=== PATIENT | male | born 1980 | race Caucasian/White ===

== ENCOUNTER 2021-05-28 20:44 | Emergency (ER) | payer MEDICAID, SELFPAY ==
[2021-05-28 20:44] VITALS: PULSE 66; RESP 18; TEMP 37.1; O2SAT 98; BMI 25.8
--- NOTE | 2021-05-28 21:01 | EKG12_ITS ---
Test Reason : CHEST PAIN Blood Pressure : / mmHG Vent. Rate : 060 BPM Atrial Rate : 060 BPM P-R Int : 180 ms QRS Dur : 094 ms QT Int : 408 ms P-R-T Axes : 053 082 047 degrees QTc Int : 408 ms Normal sinus rhythm Normal ECG Confirmed by TAL HENRIQUEZ, KATHLEEN ([id number]), editorial assistant RUTH DOVE ([id number]) on 05/31/2021 8:06:03 AM Referred By: ELIZABETH Confirmed By:KATHLEEN PARADA MD
--- NOTE | 2021-05-28 21:02 | EDS_ITS ---
HPI History of Present Illness Chief Complaint: Chest Pain Detail of Chief Complaint: Per HPI Informant: patient and spouse/S.O. Onset/Context/Timing Onset: Today and Yesterday Activity at onset: sudden and rest Timing: Intermittent Quality: Positive for Aching Location: Left Chest Current Severity: 10 Maximum Severity: Severe Worsened By: Nothing Relieved By: Nothing Associated Symptoms: Positive for Nausea, Diaphoresis, Dyspnea and - (Radiation to the right shoulder region and per HPI); Negative for Cough, Fever, Lightheadedness, Acid Reflux and Palpitations Narrative Narrative: Patient is a 41-year-old male who smokes 2 packs/day for many years. He has not seen a physician in greater than 7 years. He has no known medical problems. He admits to no family medical problems. Last evening he had bilateral jaw pain. He had several episodes. They lasted for hours. With onset he had nausea, dyspnea and diaphoresis. He would not come to the hospital last evening. He reports radiation to the right shoulder. Today early this afternoon he has had a total of 2-3 episodes of left-sided chest discomfort with nausea, diaphoresis and dyspnea. He states he did have pain upon arrival it presently does not. Then stated slight. This was associated with intrascapular pain, dyspnea, nausea and diaphoresis. took blood pressure he had a systolic of 228. She gave him 50 mg of Lopressor at noon and additional dose of Lopressor this evening. The Lopressor is her medication for high blood pressure. Prior Similar Symptoms: No Recent Illness/Hospitalization: No CVD Risk Factors: Positive for Smoking; Negative for Hypertension, Diabetes, Hypercholesterolemia and Family History 1' </=55 PE Risk Factors: Negative for Recent Travel/Surgery, Recent Immobilization, Prior DVT or PE, Cancer and OCP + Smoking + >/=35 PFSH PFSH Medical History no medical history no medical history Home Medications lisinopril-hydrochlorothiazide 1 tab PO DAILY #30 tab 05/29/21 [Rx Last Taken Unknown] Allergy/AdvReac Type Severity Reaction Status Date / Time No Known Allergies Allergy Verified 05/28/21 20:46 Surgical History no surgical history no surgical history Social History (Updated 05/29/21 @ 00:[address] Federico Francis MD) household members: spouse Smoking Status: Current every day smoker tobacco type: cigarettes substance use type: does not use ROS ROS ED Constitutional Constitutional ED: Denies chills, fever(s), subjective, sweats or weight loss Eyes Eyes: Reports none ENT ENT ED: Denies ear pain, rhinorrhea or sore throat Cardiovascular Cardiovascular: Reports as per HPI; Denies orthopnea or paroxysmal nocturnal dyspnea Respiratory/Chest Respiratory/Chest: Reports cough and dyspnea; Denies dyspnea on exertion, orthopnea, paroxysmal nocturnal dyspnea or sputum Gastrointestinal Gastrointestinal: Reports nausea; Denies abdominal pain, constipation or diarrhea Genitourinary Genitourinary ED: Denies dysuria, hematuria or urinary frequency Musculoskeletal Musculoskeletal: Denies arthralgias, back pain, myalgias or neck pain Integumentary Denies Abrasions or rash Neurologic Neurologic: Denies headache(s) or weakness Endocrine Endocrinology: Denies polydipsia, polyphagia or polyuria Hematologic/Lymphatic Hematologic/Lymphatic: Denies easy bleeding or easy bruising EXAM Physical Exam Const Vital Signs: 05/28/21 20:44 05/28/21 20:47 05/28/21 21:21 Temperature 98.7 F Temperature Source Oral Pulse Rate 66 Respiratory Rate 18 Respiratory Effort Normal Non-Labored Pulse Ox 98 95 Oxygen Delivery Method Room Air Room Air Positive well nourished and well developed General Appearance ED: well developed and NAD; Negative for pallor HEENT Reports TM's clear and moist mucous membranes normocephalic and atraumatic Tympanic Membrane ED: Yes TM's clear Eyes PERRL and EOMs intact bilaterally General Eye ED: Negative for pale conjunctiva or scleral icterus Neck no lymphadenopathy, supple and no JVD Chest Wall inspection of chest normal and palpation of chest normal Resp normal respiratory effort and clear to auscultation bilaterally Effort and Inspection: respiratory distress Cardio regular rate, regular rhythm, S1 normal heart sound, S2 normal heart sound and no murmurs GI normal to inspection, nondistended, normoactive bowel sounds, soft to palpation, non-tender and non-distended Back/Spine no CVA tenderness; Negative for no thoracic nor lumbar tenderness Extremity normal to inspection General Extremety ED: Negative for edema, pulses abnormal or tenderness General Extremity: Negative for edema or pulses abnormal Neuro oriented x3 and CN's II-XII intact bilaterally Sensorium / Orientation: awake and alert Skin no rashes or lesions noted and no wounds General Skin Exam: Negative for jaundice or pallor Heart Score History: Slightly/Non-Suspicious ECG: Normal Age: </= 45 years Risk Factors: 1 or 2 Risk Factors Troponin: </= Normal Limit Score: 1 MDM MDM MDM Narrative Medical decision making narrative: This chest discomfort jaw pain may be due to hypertension since his pressure was markedly elevated, high afterload. History is not consistent with dissection. He has symmetric pulses upper and lower extremities and right to left. He presently does not have symptoms and his blood pressure presently is normal. First troponin is 4. Since it is greater than 3 will obtain 2-hour troponin. Second troponin is 4. Patient will be discharged to home. Lab Data Attestation: I reviewed the patient's lab results. Labs: Laboratory Results - last 24 hr 05/28/21 05/28/21 05/28/21 11:14 20:45 20:45 WBC 9.9 RBC 4.94 Hgb 16.7 H Hct 47.7 MCV 96.6 H MCH 33.8 H MCHC 35.0 RDW Std Deviation 41.4 RDW Coeff of Susana 11.7 Plt Count 268 MPV 10.5 Immature Gran % (Auto) 0.200 Neut % (Auto) 56.8 Lymph % (Auto) 29.9 [place] % (Auto) 9.9 Eos % (Auto) 2.4 Baso % (Auto) 0.8 Absolute Neuts (auto) 5.6 Absolute Lymphs (auto) 2.95 Nucleated RBC % 0 Sodium 138 Potassium 3.9 Chloride 105 Carbon Dioxide 28.0 Anion Gap 5 BUN 14 Creatinine 1.39 H Estim Creat Clear Calc 66.29 Est GFR (MDRD) Af Amer 72 Est GFR (MDRD) Non-Af 59 L BUN/Creatinine Ratio 10.1 Glucose 92 Calcium 8.9 Troponin I High Sens 3 4 Urine Color Urine Clarity Urine pH Ur Specific [place] Urine Protein Urine Glucose (UA) Urine Ketones Urine Occult Blood Urine Nitrite Urine Bilirubin Urine Urobilinogen Ur Leukocyte Esterase Urine RBC Urine WBC Ur Squamous Epith Cells Urine Bacteria Urine Mucus 05/28/21 21:13 WBC RBC Hgb Hct MCV MCH MCHC RDW Std Deviation RDW Coeff of [place] Plt Count MPV Immature Gran % (Auto) Neut % (Auto) Lymph % (Auto) [place] % (Auto) Eos % (Auto) Baso % (Auto) Absolute Neuts (auto) Absolute Lymphs (auto) Nucleated RBC % Sodium Potassium Chloride Carbon Dioxide Anion Gap BUN Creatinine Estim Creat Clear Calc Est GFR (MDRD) Af Amer Est GFR (MDRD) Non-Af BUN/Creatinine Ratio Glucose Calcium Troponin I High Sens Urine Color Yellow Urine Clarity Clear Urine pH 6.0 Ur Specific [place] 1.020 Urine Protein Negative Urine Glucose (UA) Normal Urine Ketones Negative Urine Occult Blood 10 H Urine Nitrite Negative Urine Bilirubin Negative Urine Urobilinogen 4 H Ur Leukocyte Esterase Negative Urine RBC 0 SEEN Urine WBC 0 SEEN Ur Squamous Epith Cells 0 SEEN Urine Bacteria 0 SEEN Urine Mucus 0 SEEN Radiography Chest X-Ray - ED: 1 View and Read by ED Physician (Single view chest x-ray interpreted by me at 2116 reveals normal cardiac silhouette size. Mediastinum is normal. Lung parenchyma is unremarkable. [place] structures are normal.) Diagnostic Testing: Clinical Impression(s) from Imaging Studies Chest X-Ray 05/28/21 21:10 IMPRESSION: Normal x-ray examination of the chest. Electronically Signed: Kp Manuel MD at 21:27 EDT Tel , Service support , EKG Initial EKG: Attestation: I personally reviewed and interpreted this EKG as follows: Interpretation: Sinus Rhythm (The EKG is normal with a ventricular to 60. AL interval is 180 ms. QRS duration 94 ms. QT duration 408 ms. [place] is normal.) Discharge Plan Triage Chief Complaint: Chest Pain ED Provider: Federico Francis Dx/Rx/DC Orders Clinical Impression: Accelerated hypertension, Chest pain at rest Instructions: ED Hypertension New Begin Treatment Prescriptions: New lisinopril-hydrochlorothiazide 10-12.5 mg tablet 1 tab PO DAILY Qty: 30 RF: 0 Primary Care Provider: Cayden Alvarez Referrals: Cayden Alvarez, [Primary Care Provider] - 1-2 Weeks Disposition Disposition: Home, Self Care
--- NOTE | 2021-05-28 21:10 | RAD_ITS ---
STUDY: X-RAY CHEST REASON FOR EXAM: Male, 41 years old. chest pain TECHNIQUE: Frontal portable view of the chest COMPARISON: None. FINDINGS: The lungs are clear and expanded. There is no demonstrated pleural abnormality. Normal size heart. Normal mediastinum and angela. Normal visualized pulmonary arteries. Normal visualized aortic arch and descending thoracic aorta. Normal visualized thoracic spine. Normal visualized ribs, clavicles, and shoulders. There is no demonstrated abnormality of the visualized soft tissue structures of the upper abdomen. RAD/Chest 1 View (Portable) IMPRESSION: Normal x-ray examination of the chest. Electronically Signed: Kp Manuel MD at 21:27 EDT Tel , Service support ,
[2021-05-28 21:11] LABS: Absolute Lymphocyte Count 2.95 X10^3/uL (0.83-4.51); Absolute Neutrophil Count 5.6 X10^3/uL (2.0-7.7); Basophil# 0.08 X10^3/uL; Basophil% 0.8 % (0-1); Eosinophil# 0.24 X10^3/uL; Eosinophils% 2.4 % (0-5); Hematocrit 47.7 % (40-54); Hemoglobin 16.7 g/dL (13.0-16.5); Lymphocyte # 2.95 X10^3/ul (0.83-4.51); Lymphocyte % 29.9 % (19-41); Mean Corpuscular Hgb 33.8 pg (27.0-32.0); Mean Corpuscular Volume 96.6 fL (80-94); Mean Platelet Vol. 10.5 fl (6.2-12.0); Monocyte# 0.98 X10^3/uL; Monocyte% 9.9 % (0-10); NRBC Flagged by Analyzer 0 % (0-5); Neutrophil # 5.58 X10^3/uL (2.7-7.7); Neutrophil % 56.8 % (47-70); Platelet Count 268 K/mm3 (150-450); RBC Distribution Width CV 11.7 % (11.6-14.6); RBC Distribution Width SD 41.4 fl (35.1-43.9); Red Blood Count 4.94 M/mm3 (4.6-6.2); White Blood Count 9.9 K/mm3 (4.4-11.0)
[2021-05-28 21:18] LABS: Bacteria 0 SEEN /hpf (None Seen); Mucous, Urine 0 SEEN /hpf (<or=2+); Red Blood Cells-Urine 0 SEEN /hpf (0-5); Squamous Epithelial Cells - UA 0 SEEN /hpf (0-5); White Blood Cells 0 SEEN /hpf (0-5)
[2021-05-28] MEDS: Aspirin 81 MG TAB.CHEW 324 MG PO (21:20)
[2021-05-28 21:21] VITALS: O2SAT 95
[2021-05-28 21:25] LABS: Anion Gap 5 (5-15); BUN 14 mg/dL (7-18); BUN/Creat Ratio 10.1 RATIO (10-20); Calcium,Total 8.9 mg/dL (8.5-10.1); Chloride 105 mmol/L (98-107); Creatinine, Serum 1.39 mg/dL (0.70-1.30); EST Glomerular Filtration Rate 59 mL/min (>60); Est Glom Filt Rate - Afr Amer 72 mL/min (>60); Estimated Creatinine Clearance 66.29 ml/min; Glucose 92 mg/dL (74-106); Potassium 3.9 mmol/L (3.5-5.1); Sodium Level 138 mmol/L (136-145); Troponin-I HS 4 pg/mL (3.0-78.0)
[2021-05-28 21:36] LABS: Color, Urine Yellow (Yellow); Glucose, Dipstick Normal (Normal); Ketone-Dipstick Negative (Negative); Leukocyte Esterase-Dipstick Negative /ul (Negative); Nitrite-Dipstick Negative (Negative); Occult Blood-Urine 10 /ul (Negative); Protein-Dipstick Negative (Negative); Urine Bilirubin Dipstick Negative (Negative); Urine Clarity Clear (Clear); Urine Urobilinogen 4 mg/dl (Normal)
[2021-05-28 23:48] LABS: Troponin-I HS 3 pg/mL (3.0-78.0)
[2021-05-29 00:38] VITALS: BP 102/64; PULSE 59; RESP 17; O2SAT 95
== END 2021-05-29 00:39 | disposition home or self-care (01) ==
PROVIDERS: Emergency Provider Emergency Medicine; PCP Family Medicine
DX: I10 Essential (primary) hypertension (principal); R07.9 Chest pain, unspecified; R11.0 Nausea; R06.00 Dyspnea, unspecified; R61 Generalized hyperhidrosis; F17.210 Nicotine dependence, cigarettes, uncomplicated
CPT/HCPCS: 71045; 80048; 81001; 84484; 85025; 93005; 99284; J7030; A4216